=== PATIENT | female | born 1995 | race Caucasian/White ===

== ENCOUNTER 2017-04-05 16:38 | Inpatient (IN) | payer OTHER ==
[~2017-04-05] VITALS: Ht 170.2 cm; Wt 93.9 kg
[~2017-04-05 16:38] MED LIST: FERROUS SULFAT325 M2 PO; IBUPROFEN600 MG PO; TRANDATE 100 M100 MG PO
[2017-04-05 19:00] LABS: HEMOGLOBIN 11.4 gm/dl (12.3-15.3); RED BLOOD COUNT 5.17 M/UL (4.00-5.10); WHITE BLOOD COUNT 13.8 K/UL (4.5-11.0)
[2017-04-07 03:33] LABS: HEMOGLOBIN 10.6 gm/dl (12.3-15.3)
[2017-04-08] MEDS ORDERED: NORCO 5-325 TA1 EACH PO (12:34)
== END 2017-04-08 14:08 | disposition home or self-care (01) | DRG 775 ==
LOC: GENOP 16:38 → OB 17:49
PROVIDERS: Obstetrics & Gynecology; ADMIT Obstetrics & Gynecology
PROC: 10907ZC Drainage of Amniotic Fluid, Therapeutic from Products of Conception, Via Natural or Artificial Opening (ICD-10-PCS; principal; 2017-04-06)
PROC: 3E033VJ Introduction of Other Hormone into Peripheral Vein, Percutaneous Approach (ICD-10-PCS; principal; 2017-04-06)
PROC: 10E0XZZ Delivery of Products of Conception, External Approach (ICD-10-PCS; principal; 2017-04-06)
DX: O36.63X0 Maternal care for excessive fetal growth, third trimester, not applicable or unspecified (principal); Z3A.39 39 weeks gestation of pregnancy; Z37.0 Single live birth
CPT/HCPCS: 36415; 51702; 81001; 82800; 85014; 85018; 85025; 90715; J2405; J2590; J2795; J3010; J7120